=== PATIENT | male | born 1960 | race Caucasian/White ===

== ENCOUNTER 2022-08-12 08:23 | Outpatient (CLI) | payer OTHER, SELFPAY ==
[2022-08-12 11:13] LABS: Albumin* 4.5 g/dL (3.3-5.0); Chloride* 95 mmol/L (96-114)
[2022-08-12 11:14] LABS: Potassium* 4.5 mmol/L (3.6-5.1); Sodium* 134 mmol/L (135-149)
[2022-08-12 11:16] LABS: Bilirubin Total* 1.1 mg/dL (0.1-1.5); Carbon Dioxide* 29 mmol/L (20-32); Cholesterol* 179 mg/dL (90-199); Creatinine* 0.8 mg/dL (0.5-1.5); Estimated Glomerular Filt Rate 99 ml/min; Total Protein* 7.2 g/dL (6.0-8.3)
[2022-08-12 11:17] LABS: Alanine Aminotransferase* 26 U/L (4-50); Alkaline Phosphatase* 72 U/L (40-150); Aspartate Amino Transferase* 26 U/L (12-35); Blood Urea Nitrogen* 16 mg/dL (7-30); Calcium* 9.3 mg/dL (8.4-10.6); Glucose* 164 mg/dL (60-115); HDL Cholesterol* 40 mg/dL (>=40); LDL Cholesterol Calculated 118 mg/dL (<100); Triglycerides* 103 mg/dL (40-149)
[2022-08-12 11:31] LABS: Creatinine Urine 45.5 mg/dL
[2022-08-12 11:35] LABS: Microalbumin Creatinine Ratio 20 mg/g (0-30); Microalbumin Urine < 1 mg/dL
[2022-08-12 11:45] LABS: PSA Screen* 0.41 ng/mL (0.10-4.00)
== END 2022-08-12 08:24 | disposition home or self-care (01) ==
LOC: NFLDREF 08:23
PROVIDERS: PCP Internal Medicine; Visit Provider Internal Medicine
DX: E78.00 Pure hypercholesterolemia, unspecified (principal); E11.9 Type 2 diabetes mellitus without complications; I10 Essential (primary) hypertension; Z12.5 Encounter for screening for malignant neoplasm of prostate
CPT/HCPCS: 80053; 80061; 82043; 82570; 84153

== ENCOUNTER 2022-12-02 07:35 | Outpatient (CLI) | payer OTHER, SELFPAY | END 2022-12-02 07:36 | disposition home or self-care (01) | LOC: NFLDREF 12:06 | PROVIDERS: PCP Internal Medicine; Referring Provider Internal Medicine; Visit Provider Internal Medicine | DX: E78.00 Pure hypercholesterolemia, unspecified (principal); E11.9 Type 2 diabetes mellitus without complications; Z12.5 Encounter for screening for malignant neoplasm of prostate; I10 Essential (primary) hypertension | CPT/HCPCS: 80053; 80061; 82043; 82570; 84153 ==

== ENCOUNTER 2024-07-17 06:15 | Day surgery (SDC) | payer MEDICARE, BC, SELFPAY ==
[2024-07-17] VITALS (7 sets, daily range): BP systolic 169–187; BP diastolic 90–113; PULSE 66–75; RESP 16–20; TEMP 36.5; O2SAT 96–99; BMI 36.2
--- OUTSIDE RECORDS SUMMARY | 2024-07-17 06:20 | XMS_ITS | Clinical Summary ---
Author Organization [facility] Address [place], [place] [address] Care Team Providers Care Security System Administrator Name Role Phone Teodora Jones Primary Primary Care Provider Unavailabl e Medications Medication Sig Dispensed Refills Start Date End Date Status VICODIN ES 7.5 MG-750 MG ORAL TAB Take one tablet every 6 hours as needed for pain 20 0 03/21/2005 Active Active Problems Problem Noted Date Diagnosed Date SHOULDER SPRAIN 03/21/2005 Social History Tobacco Use Types Packs/Day Years Used Date Smoking Tobacco: Never Assessed Sex and Gender Information Value Date Recorded Sex Assigned at Not on file Gender Identity Not on file Sexual Orientation Not on file Last Filed Vital Signs Vital Sign Reading Time Taken Comments Blood Pressure 140/94 03/21/2005 12:00 AM CDT Pulse 96 03/21/2005 12:00 AM CDT Temperature - - Respiratory Rate - - Oxygen Saturation - - Inhaled Oxygen Concentration - - Weight 112 kg (247 lb) 03/21/2005 12:00 AM CDT Height - - Body Mass Index - - Plan of Treatment Not on file Care Teams Security System Administrator Relationship Specialty Start Date End Date Teodora Jones Primary . PCP - General 02/25/06
[2024-07-17] MEDS: BUPIVACAINE 0.5% 30 ML INJECTION (06:55)
[2024-07-17] MEDS: ETHYL CHLORIDE 1 APPLICATION 1 APPLIC TOPICAL (06:55)
[2024-07-17] MEDS: LIDOCAINE 1%-EPI 1:100,000 INJECTION (06:55)
--- NOTE | 2024-07-17 07:28 | PM.ORPRC ---
Procedure Note Date of procedure: 07/17/24 Procedure: PREOPERATIVE DIAGNOSIS: 1. Right carpal tunnel syndrome POSTOPERATIVE DIAGNOSIS: 1. Right carpal tunnel syndrome PROCEDURE: 1. Right open carpal tunnel release SURGEON: Clifton Maradiaga MD. CONTRACT IMPLEMENTATION ANALYST: AYAKA Polanco ANESTHESIA: Local anesthetic (50:50 mixture of 1% lidocaine with epi and 0.5% marcaine plain) - 10ml total IMPLANTS: None EBL: 2 mL TOURNIQUET: None COMPLICATIONS: None evident INDICATIONS: The patient is a pleasant 64-year-old male who has experienced right hand numbess/tingling affecting the radial 3.5 digits for multiple months. It has progressively gotten worse. Nonoperative management has been tried and failed, and therefore surgery was recommended. DESCRIPTION OF PROCEDURE: Following a thorough discussion of risks, benefits, and alternatives consent was obtained and the operative extremity was marked. The patient was brought to the operating room and placed supine on the operating table. Local anesthesia induction was undertaken in preop holding. No antibiotics were administered as this was planned to be a local case only. Proper time-out was performed identifying proper patient, site, and procedure. The operative extremity was prepped and draped in the appropriate sterile fashion using ChloraPrep. An incision was made in line with the radial border of the ring finger beginning 1 cm distal to the distal wrist crease and progressing for another 2.5cm distal. Caution was taken to stay proximal to Florentino's cardinal line. Sharp incision through the skin, subcutaneous tissue, and palmar fascia was performed. The thenar musculature was bluntly elevated off the transverse carpal ligament. The ligament was directly visualized, and divided sharply with a 15 blade. This was released from its most proximal to the most distal extent. Metzenbaum scissor was also utilized to release the fascia extension proximally. We confirmed complete release of the transverse carpal ligament. Closure was performed with 4-O nylon in interrupted fashion. Soft dressings were applied, and the patient was transferred to the recovery room in stable condition. PLAN: 1. Encourage elevation of the operative extremity. 2. Range of motion of the fingers and hand/wrist as tolerated. 3. Ibuprofen/acetaminophen and/or oxycodone as needed for pain control. 4. Follow up with PA visit or nurse visit in 12-16 days for wound check and suture removal.
[2024-07-17] MEDS: BACITRACIN OINTMENT BULK TUBE 1 APPLIC TOPICAL (07:32)
== END 2024-07-17 07:47 | disposition home or self-care (01) ==
LOC: OR 06:18
PROVIDERS: PCP Internal Medicine; Visit Provider Orthopaedic Surgery Sports Medicine
PROC: (CPT 64721; principal; 2024-07-17 07:15)
DX: G56.01 Carpal tunnel syndrome, right upper limb (principal)
CPT/HCPCS: 64721; J0665

== ENCOUNTER 2024-08-16 07:52 | Outpatient (CLI) | payer MEDICARE, BC, SELFPAY | END 2024-08-16 07:53 | disposition home or self-care (01) | LOC: NFLDREF 08-18 09:53 | PROVIDERS: PCP Internal Medicine; Referring Provider Internal Medicine; Visit Provider Internal Medicine | DX: R35.0 Frequency of micturition (principal); Z12.5 Encounter for screening for malignant neoplasm of prostate | CPT/HCPCS: G0103 ==

== ENCOUNTER 2025-01-31 07:36 | Outpatient (CLI) | payer MEDICARE, BC, SELFPAY | END 2025-01-31 07:37 | disposition home or self-care (01) | LOC: NFLDREF 02-03 18:48 | PROVIDERS: PCP Internal Medicine; Referring Provider Internal Medicine; Visit Provider Internal Medicine | DX: I10 Essential (primary) hypertension (principal); E78.2 Mixed hyperlipidemia; E11.9 Type 2 diabetes mellitus without complications | CPT/HCPCS: 80061 ==